=== PATIENT | female | born 1985 | race African-American/Black ===

== ENCOUNTER 2017-02-18 09:36 | Emergency (ER) | payer OTHER ==
[~2017-02-18] VITALS: Ht 157.5 cm; Wt 59.1 kg
[~2017-02-18 09:36] MED LIST: NOCURR
[2017-02-18] MEDS ORDERED: IPRATROPIUM BROMIDE 0.5 MG/2.5 ML NEB SOLUTION NEB ONE ×2 (10:30→13:15)
[2017-02-18] MEDS ORDERED: GuaiFENesin/D-METHORPHAN [SUGAR-FREE] 200-20MG/10 ML SYRUP UDCUP PO ONE (10:30)
[2017-02-18] MEDS ORDERED: ALBUTEROL SULFATE 2.5 MG/0.5 ML NEB SOLUTION NEB ONE (10:30)
[2017-02-18] MEDS ORDERED: ACETAMINOPHEN 325 MG TABLET PO ONE (10:30)
[2017-02-18] MEDS ORDERED: PredniSONE 20 MG TABLET PO ONE (10:45)
[2017-02-18 10:50] LABS: INFLUENZA TYPE A NEGATIVE FOR TYPE A (NEGATIVE); INFLUENZA TYPE B NEGATIVE FOR TYPE B (NEGATIVE)
[2017-02-18] MEDS ORDERED: 0.9% SODIUM CHLORIDE 5 ML NEB SOLUTION NEB ONE ×2 (11:40→13:45)
[2017-02-18] MEDS ORDERED: ALBUTEROL SULFATE 5 MG/ML 20 ML NEB SOLN [BULK] NEB ONE (13:15)
[2017-02-18 13:54] LABS: EOSINOPHILS # (AUTO) 0.01 K/uL (0.00-0.70); EOSINOPHILS % (AUTO) 0.15 % (1.0-6.0); HEMATOCRIT 40.2 % (36-46); HEMOGLOBIN 13.3 g/dL (12.0-16.0); LYMPHOCYTES # (AUTO) 0.2 K/uL (1.0-4.8); LYMPHOCYTES % (AUTO) 2.1 % (22.0-44.0); MEAN CORPUSCULAR HEMOGLOBIN 26.5 pg (26.0-34.0); MEAN CORPUSCULAR VOLUME 80 fL (80-100); MONOCYTES # (AUTO) 0.4 K/uL (0.1-1.0); MONOCYTES % (AUTO) 5.3 % (2.0-9.0); NEUTROPHILS # (AUTO) 7.3 K/uL (1.8-7.7); RED CELL DISTRIBUTION WIDTH 14.3 % (11.5-14.5)
[2017-02-18 13:56] LABS: NEUTROPHILS % (AUTO) 92.5 % (40.0-70.0)
[2017-02-18 14:10] LABS: ANION GAP 13 mmol/L (8-16); CARBON DIOXIDE 24 mmol/L (22-29); CHLORIDE 102 mmol/L (98-107); CREATININE 1.03 mg/dL (0.60-1.30); GLOMERULAR FILTR. RATE CALC > 60 mL/min (>60); GLUCOSE,RANDOM 139 mg/dL (70-110); POTASSIUM 3.3 mmol/L (3.5-5.1); SODIUM SERUM 139 mmol/L (136-145); UREA NITROGEN, BLOOD 10 mg/dL (7-18)
[2017-02-18 14:19] LABS: PLATELET COUNT (AUTO) 85 K/uL (150-450)
[2017-02-18 14:20] LABS: PLATELET MORPHOLOGY COMMENT GIANT PLTS PRESENT
[2017-02-18 14:21] LABS: ALANINE AMINOTRANSFERASE 27 U/L (12-78); ALBUMIN 4.2 g/dL (3.4-5.0); ALKALINE PHOSPHATASE 74 U/L (46-116); ASPARTATE AMINOTRANSFERASE 22 U/L (15-37); BILIRUBIN,TOTAL 0.5 mg/dL (0.1-1.0); TOTAL PROTEIN, SERUM 8.4 g/dL (6.4-8.2)
[2017-02-18 15:30] VITALS: BP 123/59
== END 2017-02-18 15:59 | disposition home or self-care (01) ==
LOC: EMS 09:37
DX: J45.901 Unspecified asthma with (acute) exacerbation (principal); R03.0 Elevated blood-pressure reading, without diagnosis of hypertension; R11.2 Nausea with vomiting, unspecified; Z88.0 Allergy status to penicillin; Z88.8 Allergy status to other drugs, medicaments and biological substances
CPT/HCPCS: 36415; 71045; 80053; 85025; 87040; 87804; 94644; 99285; J7512; J7611; 94640

== ENCOUNTER 2021-11-02 17:19 | Emergency (ER) | payer OTHER ==
[~2021-11-02] VITALS: Ht 154.9 cm; Wt 64.5 kg
[2021-11-02] MEDS ORDERED: BECL10.6 IH (18:10)
[2021-11-02] MEDS ORDERED: ALBU8HFA IH (18:10)
[2021-11-02] MEDS ORDERED: AMLO10TA55 PO (18:10)
[2021-11-02] MEDS ORDERED: CALC-1267 PO (18:10)
[2021-11-02] MEDS ORDERED: ALBU0.8311 NEB (18:10)
[2021-11-02] MEDS ORDERED: EPIN0.3P3 IM (18:10)
[2021-11-02] MEDS ORDERED: CLIN-26 PO (20:44)
[2021-11-02] MEDS ORDERED: HYDROCODONE/ACETAMINOPHEN 5-325 MG TABLET PO ONE (20:45)
[2021-11-02] MEDS ORDERED: IBUP-2070 PO (20:45)
[2021-11-02] MEDS ORDERED: CLINDAMYCIN HCL 150 MG CAPSULE PO ONE (20:45)
[2021-11-02] MEDS ORDERED: HYDR-4723 PO (20:46)
[2021-11-02 20:59] VITALS: BP 137/71
== END 2021-11-02 21:18 | disposition home or self-care (01) ==
LOC: EMS 17:19
DX: K04.7 Periapical abscess without sinus (principal); J45.909 Unspecified asthma, uncomplicated; I10 Essential (primary) hypertension; F12.90 Cannabis use, unspecified, uncomplicated; Z98.890 Other specified postprocedural states; Z88.0 Allergy status to penicillin; Z91.013 Allergy to seafood; Z88.8 Allergy status to other drugs, medicaments and biological substances
CPT/HCPCS: 99283

== ENCOUNTER 2023-08-27 07:10 | Emergency (ER) | payer OTHER ==
[~2023-08-27] VITALS: Ht 154.9 cm; Wt 65.9 kg
[~2023-08-27 07:10] MED LIST changes: +ALBU0.8311 NEB; +ALBU18HF12 IH; +AMLO10TA55 PO; +BECL10.6 IH; +CALC-1267 PO; +CLIN-26 PO; +EPIN0.3P3 IM; +HYDR-4062 PO; +IBUP-1492 PO; -NOCURR
[2023-08-27 07:16] VITALS: BP 133/77; PULSE 66; RESP 16; TEMP 98.1
[2023-08-27] MEDS: LIDOCAINE 5% TRANSDERMAL PATCH TD ONE (07:35)
[2023-08-27] MEDS ORDERED: LIDO700A15 TP (07:36)
[2023-08-27] MEDS ORDERED: IBUP-1492 PO (07:36)
[2023-08-27] MEDS: IBUPROFEN 600 MG TABLET PO ONE (07:36)
== END 2023-08-27 07:44 | disposition home or self-care (01) ==
LOC: EMS 07:11
DX: S29.011A Strain of muscle and tendon of front wall of thorax, initial encounter (principal); J45.909 Unspecified asthma, uncomplicated; I10 Essential (primary) hypertension; Z88.0 Allergy status to penicillin; Z91.013 Allergy to seafood; Z91.041 Radiographic dye allergy status; X50.0XXA Overexertion from strenuous movement or load, initial encounter; Y93.89 Activity, other specified; Y92.89 Other specified places as the place of occurrence of the external cause; Y99.8 Other external cause status
CPT/HCPCS: 99283